=== PATIENT | female | born 1990 | race Caucasian/White ===

== ENCOUNTER → 2017-01-26 | Outpatient (CLI) | payer OTHER ==
--- NOTE | 2017-01-26 17:28 | Diagnostic Imaging Report ---
INDICATION: survey. FINDINGS: Obstetrical ultrasonography reveals salazar intrauterine fetus in cephalic presentation. cardiac activity is present with a rate of 155 beats per minute. Placenta is posterior without evidence of previa. No anomaly is identified; however, the posterior fossa and the head is not well visualized due to positioning. The spine was also incompletely visualized. Small echogenic focus projects over the left ventricle of the heart. This demonstrates no definite shadowing. Cervical length is 4.9 cm. biometry indicates estimated gestational age of 20 weeks and 2 days. IMPRESSION: 1. No anomaly is identified; however, portions of the central nervous system were incompletely evaluated and short-term followup study in approximately 4 weeks would be useful for further evaluation. Followup study could also be used for reassessment of heart to exclude possible mass. 2. Estimated gestational age is 20 weeks and 2 days with sonographic EDC of 05/19/2017. Dictated by: Dictated on workstation # [id number]
== END ==
LOC: RAD 15:45
PROVIDERS: ATTEND Obstetrics & Gynecology
DX: Z33.1 Pregnant state, incidental (principal)
CPT/HCPCS: 76805

== ENCOUNTER → 2017-03-01 | Outpatient (CLI) | payer OTHER ==
--- NOTE | 2017-03-01 16:43 | Diagnostic Imaging Report ---
INDICATION: Followup incomplete anatomical survey, poor visualization of the brain. TECHNIQUE: Multiple real-time grayscale images were obtained over the gravid uterus. COMPARISON: 01/26/2017. FINDINGS: Single live intrauterine is again demonstrated in breech presentation. Normal amniotic fluid index. Grade 1 placenta is located posteriorly with no placenta previa. heart rate measures 156 beats per minute. There is good visualization of the brain and spine on today's exam which appear within normal limits. Echogenic focus is again noted within the left ventricle, indeterminate. IMPRESSION: 1. Good visualization of the brain and spine on today's exam. 2. Persistent echogenic focus within the left ventricle. Dictated by: Dictated on workstation # [id number]
== END ==
LOC: RAD 15:18
PROVIDERS: ATTEND Obstetrics & Gynecology
DX: Z34.82 Encounter for supervision of other normal pregnancy, second trimester (principal)
CPT/HCPCS: 76816

== ENCOUNTER → 2017-04-29 | Outpatient (CLI) | payer OTHER ==
--- NOTE | 2017-04-29 12:06 | Diagnostic Imaging Report ---
INDICATION: Followup echogenic focus of the heart. TECHNIQUE: Multiple real-time grayscale images were obtained over the gravid uterus. COMPARISON: 03/01/2017. FINDINGS: The heart rate is 135 beats per minutes. The placenta is fundal. No placenta previa. position is cephalic. The amniotic fluid index is 16.4 cm. Previously general survey was performed with no abnormality detected. In addition the nasal bone, the nose and upper lip, the upper and lower extremities are scanned with no definite abnormality seen. There are 5 fingers confirmed in both hands. The previously seen echogenic focus in the left ventricle is not well demonstrated on the current exam. IMPRESSION: Live intrauterine . Previously seen echogenic focus in the left ventricle is not well visualized at this time. The extremities, the nasal bone, and the upper lip were examined with no definite abnormality. Dictated by: Dictated on workstation # [id number]
== END ==
LOC: RAD 10:56
PROVIDERS: ATTEND Obstetrics & Gynecology
DX: Z36 Encounter for antenatal screening of mother (principal); Z3A.00 Weeks of gestation of pregnancy not specified
CPT/HCPCS: 76816

== ENCOUNTER 2017-05-31 17:47 | Inpatient (IN) | payer OTHER ==
[~2017-05-31] VITALS: Ht 162.6 cm; Wt 79.5 kg
[2017-05-31] MEDS ORDERED: D5 LR IV SOLUTION 1,000 ML IV ONE (18:07)
[2017-05-31 18:10] VITALS: BP 140/82
[2017-05-31] MEDS: D5 LR IV SOLUTION 1,000 ML IV SCH (18:20)
[2017-05-31] MEDS ORDERED: LACTATED RINGERS 1,000 ML IV ONE (18:24)
[2017-05-31] MEDS ORDERED: LACTATED RINGERS 1,000 ML IV SCH (18:26)
[2017-05-31] MEDS ORDERED: MISOPROSTOL 100 MCG (CYTOTEC) TAB PO NR (18:30)
[2017-05-31] MEDS ORDERED: MINERAL OIL CONCENTRATE 99.9% 15 ML UDC TOP PRN (18:30)
[2017-05-31 18:35] LABS: BASOPHILS % (AUTO) 0 % (0-10); EOSINOPHILS % (AUTO) 0 % (0-10); LYMPHOCYTES # (AUTO) 1.8 X 10^3 (1.0-4.0); LYMPHOCYTES % (AUTO) 17 % (12-44); MEAN CORPUSCULAR HEMOGLOBIN 30 PG (25-34); MEAN CORPUSCULAR HGB CONC 36 G/DL (32-36); MEAN CORPUSCULAR VOLUME 85 FL (80-99); MEAN PLATELET VOLUME 12.1 FL (7.4-10.4); MONOCYTES # (AUTO) 0.9 X 10^3 (0.0-1.0); MONOCYTES % (AUTO) 8 % (0-12); NEUTROPHILS # (AUTO) 8.1 X 10^3 (1.8-7.8); NEUTROPHILS % (AUTO) 75 % (42-75); PLATELET COUNT 130 10^3/uL (130-400); RED BLOOD COUNT 4.26 10^6/uL (4.35-5.85); WHITE BLOOD COUNT 10.8 10^3/uL (4.3-11.0)
[2017-05-31] MEDS ORDERED: PREN1TAB86 PO (18:44)
[2017-05-31 18:54] LABS: ALANINE AMINOTRANSFERASE 24 U/L (0-55); ALBUMIN 3.2 GM/DL (3.2-4.5); ANION GAP 9 MMOL/L (5-14); ASPARTATE AMINO TRANSFERASE 30 U/L (5-34); BILIRUBIN,TOTAL 0.8 MG/DL (0.1-1.0); BLOOD UREA NITROGEN 8 MG/DL (7-18); BUN/CREATININE RATIO 15; CALCIUM 8.9 MG/DL (8.5-10.1); CARBON DIOXIDE 22 MMOL/L (21-32); CHLORIDE 106 MMOL/L (98-107); CREATININE SERUM 0.52 MG/DL (0.60-1.30); GFR ESTIMATED > 60; GLUCOSE 97 MG/DL (70-105); POTASSIUM 3.4 MMOL/L (3.6-5.0); SODIUM 137 MMOL/L (135-145); TOTAL PROTEIN 6.3 GM/DL (6.4-8.2); URIC ACID 3.2 MG/DL (2.6-7.2)
[2017-05-31 20:30] VITALS: BP 141/90
[2017-05-31] MEDS ORDERED: CATHETER FLUSH 10 ML SYR IV SCH (22:00)
[2017-06-01] VITALS (65 sets, daily range): BP systolic 113–202; BP diastolic 62–106
[2017-06-01] MEDS: MISOPROSTOL 100 MCG (CYTOTEC) TAB PO SCH ×2 (00:40→04:50)
[2017-06-01] MEDS: D5 LR IV SOLUTION 1,000 ML IV SCH ×2 (03:37→19:10)
[2017-06-01] MEDS ORDERED: OXYTOCIN/NORMAL SALINE 500 ML IV SCH (09:00)
--- NOTE | 2017-06-01 09:46 | History & Physical-OB ---
OB - Chief Complaint & HPI Date/Time Date of Admission: Date of Admission: May 31, 2017 at 17:47 Time Seen by Provider: 08:00 Chief Complaint/History OB-Reason for Admission/Chief: Induction of Labor Hx : 1 Hx Para: 0 Expected Date of Delivery: Jun 15, 2017 Gestational Age in Weeks: 38 Gestational Age in Days: 0 Indication for induction: medical complication Other reason for admission: Patient has been monitored for gestational thrombocytopenia. Tuesday she underwent repeat platelet evaluation which was found to be 117,000. This a decrease from the 140s on prior platelet evaluation. She also had an acute blood pressure elevation in the setting of no prior blood pressure concerns throughout her . She was 142/90 on Tuesday when I brought the patient back in to discuss platelets she reports that her blood pressure at work was as high as 150s to 160s over 90s to 100, her blood pressure for many office was 144 /94. Due to suspicion for mild preeclampsia and the patient being 38 weeks gestation I discussed with her proceeding with induction of labor. Admission Nurse Assessment Rev: Yes History of Labs O pos Antibody neg RI RPR NR HBsAg NR HIV NR GC neg GBS neg Allergies and Home Medications Allergies Coded Allergies: latex (Verified Allergy, Intermediate, 05/31/17) Home Medications Vit W-Ca,Fe,FA(<1 mg) 1 Each Tablet, 1 EACH PO DAILY, (Reported) OB - History Hx of Present Care: Yes Ultrasounds: Normal mid trimester US Obstetrical Complications: Pre-eclampsia, Other (Gestatonal Thrombocytopenia) Medical Complications: None Patient Past Medical History none Social History/Family History Recent Infectious Disease Expo: No Alcohol Use: Denies Use Recreational Drug Use: No Immunizations Hepatitis B: Yes OB - Admission Exam Physical Exam Date Seen by Provider: Jun 01, 2017 Time Seen by Provider: 07:00 Vitals: Vital Signs 06/01/17 06/01/17 04:50 05:30 Temp 98.1 Pulse 80 Resp 16 B/P (MAP) 132/80 O2 Delivery Room Air HEENT: NCAT Heart: Rhythm Normal Lungs: Clear Abdomen: Gravid Extremities: Normal Reflexes: Normal Cervical Dilatation: 2cm Effacement: 75% Station: -1 Membranes: Intact Heart Rate: 130's Accelerations: Accelerations Present Decelerations: No Decelerations Short Term Variability: Present Longterm Variability: Average (6-25) Contractions on Admission: 6-10 Minutes Apart Intensity: Mild Hobson Scoring Tool (Modified) Dilation (cm): 1-2cm (1) Effacement (%): 51-79% (2) Descent/Station: -1,0 (2) Cervix Consistency: Soft (2) Cervix Position: Anterior (2) Add 1 point for: Pre-eclampsia (1) Subtract 1 point for: Nulliparity (-1) Hobson Score: 9 Labs Laboratory Tests Test 05/31/17 18:25 Range/Units White Blood Count 10.8 4.3-11.0 10^3/uL Red Blood Count 4.26 L 4.35-5.85 10^6/uL Hemoglobin 12.9 11.5-16.0 G/DL Hematocrit 36 35-52 % Mean Corpuscular Volume 85 80-99 FL Mean Corpuscular Hemoglobin 30 25-34 PG Mean Corpuscular Hemoglobin Concent 36 32-36 G/DL Red Cell Distribution Width 13.0 10.0-14.5 % Platelet Count 130 130-400 10^3/uL Mean Platelet Volume 12.1 H 7.4-10.4 FL Neutrophils (%) (Auto) 75 42-75 % Lymphocytes (%) (Auto) 17 12-44 % Monocytes (%) (Auto) 8 0-12 % Eosinophils (%) (Auto) 0 0-10 % Basophils (%) (Auto) 0 0-10 % Neutrophils # (Auto) 8.1 H 1.8-7.8 X 10^3 Lymphocytes # (Auto) 1.8 1.0-4.0 X 10^3 Monocytes # (Auto) 0.9 0.0-1.0 X 10^3 Eosinophils # (Auto) 0.0 0.0-0.3 10^3/uL Basophils # (Auto) 0.0 0.0-0.1 10^3/uL Sodium Level 137 135-145 MMOL/L Potassium Level 3.4 L 3.6-5.0 MMOL/L Chloride Level 106 98-107 MMOL/L Carbon Dioxide Level 22 21-32 MMOL/L Anion Gap 9 5-14 MMOL/L Blood Urea Nitrogen 8 7-18 MG/DL Creatinine 0.52 L 0.60-1.30 MG/DL Estimat Glomerular Filtration Rate > 60 BUN/Creatinine Ratio 15 Glucose Level 97 70-105 MG/DL Uric Acid 3.2 2.6-7.2 MG/DL Calcium Level 8.9 8.5-10.1 MG/DL Total Bilirubin 0.8 0.1-1.0 MG/DL Aspartate Amino Transf (AST/SGOT) 30 5-34 U/L Alanine Aminotransferase (ALT/SGPT) 24 0-55 U/L Alkaline Phosphatase 130 40-136 U/L Total Protein 6.3 L 6.4-8.2 GM/DL Albumin 3.2 3.2-4.5 GM/DL OB - Assessment/Plan/Diagnosis Assessment Assessment: induction of labor Plan Plan: Induction Induction Method: per Misoprostol Protocol Discharge Diagnosis Diagnosis: 27 yo @ 38 weeks gestation Mild PreE with Thrombocytopenia GBS neg AGGIE DICKINSON DO Jun 01, 2017 09:46
[2017-06-01] MEDS ORDERED: SUFENTA 0.6MCG/ML BUPIVA 0.125 100 ML ONE ×2 (15:22→23:30)
[2017-06-01] MEDS ORDERED: BUPIVACAINE 0.25% 30 ML (SENSORCAINE) VIAL ONE (15:22)
[2017-06-01] MEDS ORDERED: ONDANSETRON 4 MG/2 ML (SDV) Z0FRAN ONE (23:15)
[2017-06-01] MEDS ORDERED: ONDANSETRON 4 MG/2 ML (SDV) Z0FRAN IVP PRN (23:30)
[2017-06-01] MEDS ORDERED: LIDOCAINE/EPI 1%-1:200,000 (XYLOCAINE) 30 ML VIAL ONE (23:39)
[2017-06-02] VITALS (16 sets, daily range): BP systolic 110–149; BP diastolic 66–104
[2017-06-02] MEDS: OXYTOCIN/NORMAL SALINE 500 ML IV SCH ×2 (01:00→01:31)
[2017-06-02] MEDS ORDERED: MEASLES,MUMPS,RUBELLA 1 EA INJ SQ ONE (01:15)
[2017-06-02] MEDS ORDERED: APAP 300 MG/CODEINE 30 MG (TYLENOL #3) TAB PO PRN (01:15)
[2017-06-02] MEDS ORDERED: DIBUCAINE (NUPERCAINAL) 1% OINT 30 GM TOP PRN (01:15)
[2017-06-02] MEDS ORDERED: WITCH HAZEL(TUCKS) 40 EA JAR TOP PRN (01:15)
[2017-06-02] MEDS ORDERED: BENZOCAINE/MENTHOL (DERMOPLAST) 56 ML CAN TP PRN (01:15)
[2017-06-02] MEDS ORDERED: TETANUS,DIPTH,PERTUSS P/F (BOOSTRIX) 0.5 ML VIAL IM ONE (01:15)
--- NOTE | 2017-06-02 01:18 | OB Labor & Delivery Record ---
L&D History Date of Service Date of Service: Jun 02, 2017 History Expected Date of Delivery: Jun 15, 2017 Gestational Age in Weeks: 38 Hx : 1 Hx Para: 0 Complications Events: Pre-Eclampsia (gestational thrombocytopenia), Routine care Operative Indications (Cesarea: N/A-Vaginal Delivery Intrapartal Events: None L&D Stage1 Stage One Onset of Labor - Date: Jun 01, 2017 Monitors and Tracing Monitor Mode: External Heart Rate: 130 Station: -2 Chiropractic Assistant Variability: Average (6-10) Short Term Variability: Present Presentation: Vertex Vital Signs VS - Last 72 Hours, by Label 05/31/17 05/31/17 05/31/17 05/31/17 18:10 20:30 21:30 22:30 Temp 97.8 Resp 20 18 18 B/P (MAP) 140/82 141/90 O2 Delivery Room Air Room Air Room Air Room Air 05/31/17 06/01/17 06/01/17 06/01/17 23:30 00:30 00:40 01:30 Temp 98.9 Pulse 84 Resp 16 B/P (MAP) 137/92 O2 Delivery Room Air Room Air Room Air Room Air 06/01/17 06/01/17 06/01/17 06/01/17 02:30 03:30 04:30 04:50 Temp 98.1 Pulse 80 Resp 16 B/P (MAP) 132/80 O2 Delivery Room Air Room Air Room Air Room Air 06/01/17 06/01/17 06/01/17 06/01/17 05:30 08:50 09:05 09:20 Temp 98.4 Pulse 77 73 76 Resp 16 18 16 B/P (MAP) 136/92 147/81 132/85 O2 Delivery Room Air Room Air Room Air Room Air 06/01/17 06/01/17 06/01/17 06/01/17 09:35 09:50 10:05 10:20 Pulse 73 69 65 65 Resp 16 16 16 18 B/P (MAP) 114/64 115/67 134/89 128/84 O2 Delivery Room Air Room Air Room Air Room Air 06/01/17 06/01/17 06/01/17 06/01/17 10:30 10:45 11:00 11:15 Pulse 69 73 79 73 Resp 20 20 20 20 B/P (MAP) 126/83 134/93 113/87 139/95 O2 Delivery Room Air Room Air Room Air Room Air 06/01/17 06/01/17 06/01/17 06/01/17 11:30 11:45 12:00 12:15 Temp 98.6 Pulse 72 78 74 70 Resp 20 20 20 20 B/P (MAP) 134/73 139/88 149/95 141/95 O2 Delivery Room Air Room Air Room Air Room Air 06/01/17 06/01/17 06/01/17 06/01/17 12:30 12:45 13:00 13:15 Pulse 74 76 63 Resp 18 18 18 18 B/P (MAP) 122/73 143/91 114/69 O2 Delivery Room Air Room Air Room Air Room Air 06/01/17 06/01/17 06/01/17 06/01/17 13:30 13:45 14:00 14:15 Pulse 63 65 70 Resp 18 18 18 18 B/P (MAP) 123/70 130/86 134/88 O2 Delivery Room Air Room Air Room Air Room Air 06/01/17 06/01/17 06/01/17 06/01/17 14:30 14:45 15:00 15:15 Pulse 73 76 92 77 Resp 18 18 18 18 B/P (MAP) 134/90 135/76 202/101 131/86 O2 Delivery Room Air Room Air Room Air Room Air 06/01/17 06/01/17 06/01/17 06/01/17 15:30 15:33 15:36 15:38 Pulse 82 75 81 81 Resp 18 18 18 18 B/P (MAP) 137/84 144/96 151/92 142/83 Pulse Ox 100 100 100 O2 Delivery Room Air Room Air Room Air Room Air 06/01/17 06/01/17 06/01/17 06/01/17 15:41 15:45 15:48 15:55 Temp 98.4 Pulse 83 93 76 76 Resp 18 18 18 18 B/P (MAP) 142/82 148/88 147/85 134/78 Pulse Ox 100 100 99 O2 Delivery Room Air Room Air Room Air Room Air 06/01/17 06/01/17 06/01/17 06/01/17 16:00 16:05 16:10 16:15 Pulse 77 83 81 88 Resp 18 18 B/P (MAP) 137/90 133/98 142/88 152/92 Pulse Ox 98 98 98 99 O2 Delivery Room Air Room Air Room Air Room Air 06/01/17 06/01/17 06/01/17 06/01/17 16:30 16:45 17:00 17:15 Pulse 81 85 83 80 Resp 18 18 18 18 B/P (MAP) 142/100 134/78 130/76 147/99 Pulse Ox 99 99 99 99 O2 Delivery Room Air Room Air Room Air Room Air 06/01/17 06/01/17 06/01/17 06/01/17 17:30 17:45 18:00 18:15 Pulse 90 90 92 80 Resp 18 18 18 18 B/P (MAP) 141/99 152/99 146/94 143/98 Pulse Ox 99 99 99 99 O2 Delivery Room Air Room Air Room Air Room Air 06/01/17 06/01/17 06/01/1717 18:30 18:45 19:00 19:15 Temp 98.4 Pulse 78 79 80 80 Resp 18 18 18 18 B/P (MAP) 136/97 141/95 Pulse Ox 99 98 98 98 O2 Delivery Room Air Room Air Room Air Room Air 06/01/17 06/01/17 06/01/17 06/01/17 19:30 19:45 20:00 20:15 Temp 99.0 Pulse 80 83 81 84 Resp 18 18 18 18 B/P (MAP) 146/95 145/90 134/88 Pulse Ox 98 98 98 98 O2 Delivery Room Air Room Air Room Air Room Air 06/01/17 06/01/17 06/01/17 06/01/17 20:30 20:45 21:00 21:15 Pulse 88 80 78 75 Resp 18 18 18 18 B/P (MAP) 137/88 134/83 135/83 Pulse Ox 98 98 98 98 O2 Delivery Room Air Room Air Room Air Room Air 06/01/17 06/01/17 06/01/17 06/01/17 21:30 21:45 22:00 22:15 Pulse 81 71 71 73 Resp 18 18 18 18 B/P (MAP) 124/71 127/70 124/71 125/72 Pulse Ox 98 98 98 98 O2 Delivery Room Air Room Air Room Air Room Air 06/01/17 06/01/17 06/01/17 22:30 22:45 23:00 Temp 98.2 Pulse 74 69 73 Resp 18 18 18 B/P (MAP) 116/70 125/62 123/62 Pulse Ox 98 98 97 O2 Delivery Room Air Room Air Room Air Rupture of Membranes Spontaneous Ruture of Membrane: No Amniotic Membrane Rupture Time: 1803 Amniotic Membrane Fluid Desc.: Clear Vaginal Bleeding Description: Normal Show Induction/Anesthesia Epidural Cath Placement - Time: 1545 Progress/Notes Patient was brought in on the evening of May 31 for Cytotec by mouth overnight. The following morning she was found and made minimal change from her admission examination was started on Pitocin augmentation. An adequate contraction pattern was achieved, throughout the day she mildly progressed however 5 o'clock in the afternoon artificial rupture membranes was performed clear fluid was noted and the patient progressed rapidly after that point. She progressed to complete and +1 station L&D Stage2 Stage Two Stage II Date: Jun 02, 2017 Monitors and Tracing Monitor Mode: External Heart Rate: 130 Monitor Decelerations: Variable Chiropractic Assistant Variability: Minimal (3-5) Short Term Variability: Present Position: Right Occiput Anterior Cord Descript/Complications Cord Vessel Description: 3 Vessels Delivery Type Delivery Method: Spontaneous Vaginal Anterior Shoulder: Right Episiotomy/Perineal Laceration Laceraction(s)/Extensions: Yes Episiotomy Description: Right Mediolateral Degree (describe repair) Right mediolateral episiotomy repaired using 30 and 2-0 Vicryl suture in the usual fashion Condition of Infant Delivery 1 minute Comment: 8 5 minute Comment: 9 Notes Live female infant weight pending Condition of Infant Condition of : Living Exam: No Observed Abnormalities Resuscitation Resuscitation: N/A - Spontaneous Resp L&D Stage3 Stage Three Stage III Date: Jun 02, 2017 Pictocin Pitocin Administration mu/min: 14 Pitocin ml/hr: 14 Pitocin Administration Comment: Wide open 30 milliunits Pitocin given at delivery of placenta Placenta Delivery Placenta Delivery: Spontaneous Delivery Summary Summary blood loss >1000ml: No Vaginal blood loss >500ml: No 400 Attending at delivery: Aggie Dickinson DO Condition of Delivery Examined: Cervix Examined, Uterus Explored Post Hemorrhage: No Condition of Mother Stable Condition of Infant (s) Stable AGGIE DICKINSON DO Jun 02, 2017 1:18 am
[2017-06-02] MEDS: IBUPROFEN 600 MG (MOTRIN) TAB PO SCH ×4 (03:31→20:19)
[2017-06-02] MEDS ORDERED: CATHETER FLUSH 10 ML SYR IV SCH (06:00)
[2017-06-02] MEDS: DOCUSATE SODIUM 100 MG (COLACE) CAP PO SCH ×2 (08:17→20:18)
[2017-06-02] MEDS: PRENATAL VITAMIN 1 EA TAB PO SCH (08:18)
[2017-06-02] MEDS: FERROUS SULF 325 MG (IRON) TAB PO SCH (08:18)
--- NOTE | 2017-06-02 11:36 | Anesthesia-Regional Post-Op ---
Regional Patient Condition Mental Status: Alert, Oriented x3 Circulation: Same as Pre-Op Headache: Absent Sensation: Full Recovery Motor Block: Absent Post Op Complications Complications None Follow Up Care/Instructions Patient Instructions None needed. Anesthesia/Patient Condition Patient is doing well, no complaints, stable vital signs, no apparent adverse anesthesia problems. No complications reported per nursing. YESENIA LYNN CRNA Jun 02, 2017 11:36
[2017-06-03 02:00] VITALS: BP 125/80
[2017-06-03] MEDS: IBUPROFEN 600 MG (MOTRIN) TAB PO SCH ×3 (02:29→16:50)
[2017-06-03 07:38] LABS: BASOPHILS % (AUTO) 0 % (0-10); EOSINOPHILS # (AUTO) 0.1 10^3/uL (0.0-0.3); EOSINOPHILS % (AUTO) 1 % (0-10); LYMPHOCYTES # (AUTO) 1.5 X 10^3 (1.0-4.0); LYMPHOCYTES % (AUTO) 18 % (12-44); MEAN CORPUSCULAR HEMOGLOBIN 30 PG (25-34); MEAN CORPUSCULAR HGB CONC 35 G/DL (32-36); MEAN CORPUSCULAR VOLUME 87 FL (80-99); MEAN PLATELET VOLUME 12.7 FL (7.4-10.4); MONOCYTES # (AUTO) 0.7 X 10^3 (0.0-1.0); MONOCYTES % (AUTO) 8 % (0-12); NEUTROPHILS # (AUTO) 6.4 X 10^3 (1.8-7.8); NEUTROPHILS % (AUTO) 74 % (42-75); PLATELET COUNT 117 10^3/uL (130-400); RED BLOOD COUNT 3.36 10^6/uL (4.35-5.85); RED CELL DISTRIBUTION WIDTH 13.1 % (10.0-14.5); WHITE BLOOD COUNT 8.7 10^3/uL (4.3-11.0)
[2017-06-03] MEDS ORDERED: FERR-74 PO (09:08)
[2017-06-03] MEDS ORDERED: DOCU100C37 PO (09:08)
[2017-06-03] MEDS ORDERED: BENZ56AE2 TP (09:08)
[2017-06-03] MEDS ORDERED: IBUP-1773 PO (09:08)
[2017-06-03] MEDS ORDERED: ACET1TAB43 PO (09:08)
--- NOTE | 2017-06-03 09:09 | Discharge Inst-Women's Service ---
Discharge Inst-Women's Serv Depart Medication/Instructions New, Converted or Re-Newed RX: RX on Chart Consults/Follow Up Additional Follow Up: Yes Orders/Referrals Dr. Dickinson in 6 weeks Activity Activity: Activity as Tolerated Driving Instructions: No Driving for 1 Week NO SMOKING: NO SMOKING Nothing Inside Vagina: No Douching, No [place], No Tampons Diet Discharge Diet: No Restrictions Symptoms to Report to : Bleeding Excessive, Pain Increased, Fever Over 101 Degrees F, Vaginal Bleeding Increase, Questions/Concerns For Any Problems or Questions: Contact Your Physician Skin/Wound Care Bathing Instructions: Shower (x 2 weeks) AGGIE DICKINSON DO Jun 03, 2017 9:09 am
--- NOTE | 2017-06-03 09:11 | Progress Note-Standard ---
Standard Progress Note Progress Notes/Assess & Plan Date Seen by Provider: Jun 03, 2017 Time Seen by Provider: 09:30 Progress/Assessment & Plan Patient doing well PPD 1 NVD. Reports good pain control, lochia min. Ambulating and voiding freely. . Vital Sign - Last 24 Hours 06/02/17 06/02/17 06/02/17 06/03/17 12:15 17:30 20:00 02:00 Temp 98.0 99.0 98.6 97.0 Pulse 78 86 84 83 Resp B/P (MAP) 119/74 131/81 124/78 125/80 Pulse Ox 98 98 96 98 O2 Delivery Room Air Room Air Room Air Room Air Laboratory Tests Test 06/03/17 07:20 Range/Units White Blood Count 8.7 4.3-11.0 10^3/uL Red Blood Count 3.36 L 4.35-5.85 10^6/uL Hemoglobin 10.1 #L 11.5-16.0 G/DL Hematocrit 29 L 35-52 % Mean Corpuscular Volume 87 80-99 FL Mean Corpuscular Hemoglobin 30 25-34 PG Mean Corpuscular Hemoglobin Concent 35 32-36 G/DL Red Cell Distribution Width 13.1 10.0-14.5 % Platelet Count 117 L 130-400 10^3/uL Mean Platelet Volume 12.7 H 7.4-10.4 FL Neutrophils (%) (Auto) 74 42-75 % Lymphocytes (%) (Auto) 18 12-44 % Monocytes (%) (Auto) 8 0-12 % Eosinophils (%) (Auto) 1 0-10 % Basophils (%) (Auto) 0 0-10 % Neutrophils # (Auto) 6.4 1.8-7.8 X 10^3 Lymphocytes # (Auto) 1.5 1.0-4.0 X 10^3 Monocytes # (Auto) 0.7 0.0-1.0 X 10^3 Eosinophils # (Auto) 0.1 0.0-0.3 10^3/uL Basophils # (Auto) 0.0 0.0-0.1 10^3/uL Uterine fundus firm and below umbilicus Diagnosis: PPD 1 NVD P: DC today w infant TEENAAGGIE Amaury ECKERT Jun 03, 2017 9:11 am
[2017-06-03 09:15] VITALS: BP 121/76
[2017-06-03] MEDS: DOCUSATE SODIUM 100 MG (COLACE) CAP PO SCH (09:42)
[2017-06-03] MEDS: PRENATAL VITAMIN 1 EA TAB PO SCH (09:42)
[2017-06-03] MEDS: FERROUS SULF 325 MG (IRON) TAB PO SCH (09:42)
[2017-06-03 12:30] VITALS: BP 124/76
[2017-06-03 16:20] VITALS: BP 125/80
[2017-06-03 17:35] VITALS: BP 125/80
== END 2017-06-03 17:35 | disposition home or self-care (01) | DRG 775 ==
LOC: LDRP 17:47
PROVIDERS: ADMIT Obstetrics & Gynecology; ATTEND Obstetrics & Gynecology
PROC: 3E0P7GC Introduction of Other Therapeutic Substance into Female Reproductive, Via Natural or Artificial Opening (ICD-10-PCS; 2017-05-31)
PROC: 0W8NXZZ Division of Female Perineum, External Approach (ICD-10-PCS; principal; 2017-06-02)
PROC: 10E0XZZ Delivery of Products of Conception, External Approach (ICD-10-PCS; 2017-06-02)
DX: O14.94 Unspecified pre-eclampsia, complicating childbirth (principal); O99.13 Other diseases of the blood and blood-forming organs and certain disorders involving the immune mechanism complicating the puerperium; D69.6 Thrombocytopenia, unspecified; Z3A.38 38 weeks gestation of pregnancy; Z37.0 Single live birth
CPT/HCPCS: 36415; 80053; 84550; 85025; 86850; 86900; 86901; 88307

== ENCOUNTER → 2019-01-04 | Outpatient (CLI) | payer OTHER ==
[~2019-01-04] MED LIST: ACET1TAB43 PO; BENZ56AE2 TP; DOCU100C37 PO; FERR325T18 PO; IBUP-1773 PO; PREN1TAB86 PO
--- NOTE | 2019-01-04 09:06 | Diagnostic Imaging Report ---
INDICATION: Enlarged thyroid gland TECHNIQUE: Grayscale sonographic images of the thyroid gland. CORRELATION STUDY: None FINDINGS: RIGHT LOBE: 5.0 x 1.6 x 1.5 cm. There is normal echotexture about the right lobe. LEFT LOBE: 4.1 x 1.5 x 1.5 cm. There is normal echotexture about the left lobe. Isthmus appears unremarkable. IMPRESSION: Mildly elongated, borderline enlarged thyroid gland. No definitive mass. (Normal gland size: 4-5 x 2 x 2 cm) Dictated by: Dictated on workstation # [id number]
== END ==
LOC: RAD 07:47
PROVIDERS: ATTEND Obstetrics & Gynecology
DX: E04.9 Nontoxic goiter, unspecified (principal)
CPT/HCPCS: 76536

== ENCOUNTER → 2019-03-02 | Outpatient (CLI) | payer OTHER ==
--- NOTE | 2019-03-02 09:04 | Diagnostic Imaging Report ---
Indication: Screening for cardiovascular disease The proximal abdominal aorta measures 18 x 17 mm. The mid abdominal aorta measures 13 x 15 mm. Distal abdominal aorta measures 12 x 13 mm. Right iliac measures 8 x 13 mm. Left iliac measures 8 x 10 mm. Impression: There is no sonographic evidence for abdominal aortic aneurysm. Dictated by: Dictated on workstation # [id number]
== END ==
LOC: RAD 07:35
PROVIDERS: ATTEND Obstetrics & Gynecology
DX: Z13.6 Encounter for screening for cardiovascular disorders (principal)
CPT/HCPCS: 76775

== ENCOUNTER → 2020-02-21 | Outpatient (CLI) | payer OTHER ==
--- NOTE | 2020-02-21 15:58 | Diagnostic Imaging Report ---
INDICATION: survey. TECHNIQUE: Multiple real-time grayscale images were obtained over the gravid uterus. COMPARISON: There are no prior studies available for comparison. FINDINGS: There is a single live fetus in cephalic presentation. heart motion was noted and a rate of 136 BPM was recorded. There were no abnormalities identified. However, the spine was not optimally visualized due to lie. There is no definite abnormality of the visualized spine. Even so, a short-term (4-6 week) follow-up exam would be recommended for further study. The growth parameters are fairly uniform. The placenta is posterior and there is no previa. The amniotic fluid volume is within normal limits. The cervix was identified and measures 3.7 cm in length. Biometrical measurements are as follows: Biparietal 4.52 cm, age 19 weeks 5 days. Head circumference 16.82 cm, age 19 weeks 4 days. Abdominal circumference 13.99 cm, age 19 weeks 3 days. Femur length 2.72 cm, age 18 weeks 3 days. Sonographic estimate age: 19 weeks 2 days. Sonographic estimated date of delivery: 07/15/20. Estimated Weight: 266 gm (+/- 39 gm). LMP percentile: 69%. heart rate: 136 beats per minute. number: 1 of 1. IMPRESSION: 1. There is a single live fetus of approximately 19 weeks 2 days gestation +/- 1.5 weeks. The EDC is 07/15/2020. 2. There were no abnormalities identified but the spine was not optimally visualized. Recommendations, as above. 3. The growth parameters are fairly uniform. Dictated by: Dictated on workstation # [id number]
== END ==
LOC: RAD 11:47
PROVIDERS: ATTEND Obstetrics & Gynecology
DX: Z36.9 Encounter for antenatal screening, unspecified (principal); Z3A.19 19 weeks gestation of pregnancy
CPT/HCPCS: 76805

== ENCOUNTER → 2020-06-30 | Outpatient (CLI) | payer OTHER ==
[~2020-06-30] MED LIST changes: +ACET325C7 PO; +ACHD5005 PO; +BENZ78AE5 TP; +DCS100C PO; +DIBU30OI TOP; +IBUP-844 PO
[2020-06-30 11:12] LABS: URINE CREATININE FOR RATIO 14 MG/DL (30-125); URINE PROTEIN FOR RATIO ONLY < 6 MG/DL (6-12)
== END ==
LOC: LABNPT 11:02
PROVIDERS: ATTEND Obstetrics & Gynecology
DX: O16.9 Unspecified maternal hypertension, unspecified trimester (principal); Z3A.00 Weeks of gestation of pregnancy not specified
CPT/HCPCS: 82570; 84156

== ENCOUNTER → 2020-07-08 | Outpatient (CLI) | payer OTHER ==
[~2020-07-08] MED LIST changes: -ACET325C7 PO; -ACHD5005 PO; -BENZ78AE5 TP; -DCS100C PO; -DIBU30OI TOP; -IBUP-844 PO
[2020-07-08 17:20] LABS: URINE CREATININE FOR RATIO 11 MG/DL (30-125)
[2020-07-08 17:21] LABS: URINE PROTEIN FOR RATIO ONLY < 6 MG/DL (6-12)
== END ==
LOC: LABNPT 16:56
PROVIDERS: ATTEND Obstetrics & Gynecology
DX: O13.3 Gestational [pregnancy-induced] hypertension without significant proteinuria, third trimester (principal)
CPT/HCPCS: 82570; 84156

== ENCOUNTER 2020-07-13 19:00 | Inpatient (IN) | payer OTHER ==
[~2020-07-13] VITALS: Ht 160 cm; Wt 84.3 kg
--- NOTE | 2020-07-13 19:00 | NUR ---
PAUL RUIZ presented to unit via from ED, accompanied by S/O, with c/o [id number] INDUCTION. PAUL RUIZ weighed, gowned, voided, and to bed. EFHM and TOCO applied, VS taken. PAUL RUIZ oriented to bed controls, call light, TV, heat, and A/C controls.
[2020-07-13 19:15] VITALS: BP 148/92
--- NOTE | 2020-07-13 19:20 | NUR ---
Dr. James notified of patient arrival for induction. Vitals reported. Orders received.
[2020-07-13] MEDS ORDERED: D5 LR IV SOLUTION 1,000 ML IV ONE (19:23)
[2020-07-13] MEDS ORDERED: TERBUTALINE INJ 1 MG/ML (BRETHINE) AMP SC PRN (19:30)
[2020-07-13] MEDS ORDERED: MISOPROSTOL 100 MCG (CYTOTEC) TAB PO ONE (19:30)
[2020-07-13] MEDS: D5 LR IV SOLUTION 1,000 ML IV SCH (19:45)
[2020-07-13 19:56] LABS: BILIRUBIN,URINE NEGATIVE (NEGATIVE); CLARITY,URINE CLEAR; COLOR,URINE YELLOW; GLUCOSE, URINE (UA) NEGATIVE (NEGATIVE); KETONES,URINE NEGATIVE (NEGATIVE); LEUKOCYTE ESTERASE ,URINE 2+ (NEGATIVE); NITRITE,URINE NEGATIVE (NEGATIVE); PROTEIN,URINE NEGATIVE (NEGATIVE)
[2020-07-13 19:59] LABS: HEMOGLOBIN 12.3 g/dL (11.5-16.0); LYMPHOCYTES # (AUTO) 2.1 10^3/uL (1.0-4.0)
[2020-07-13] MEDS ORDERED: MISOPROSTOL 100 MCG (CYTOTEC) TAB ONE (19:59)
[2020-07-13 20:01] LABS: BASOPHILS % (AUTO) 0 % (0-10); EOSINOPHILS # (AUTO) 0.1 10^3/uL (0.0-0.3); EOSINOPHILS % (AUTO) 1 % (0-10); HEMATOCRIT 37 % (35-52); LYMPHOCYTES % (AUTO) 23 % (12-44); MEAN CORPUSCULAR HEMOGLOBIN 28 pg (25-34); MEAN CORPUSCULAR HGB CONC 34 g/dL (32-36); MEAN CORPUSCULAR VOLUME 85 fL (80-99); MEAN PLATELET VOLUME 13.4 fL (9.0-12.2); MONOCYTES # (AUTO) 0.7 10^3/uL (0.0-1.0); MONOCYTES % (AUTO) 8 % (0-12); NEUTROPHILS # (AUTO) 6.2 10^3/uL (1.8-7.8); NEUTROPHILS % (AUTO) 68 % (42-75); PLATELET COUNT 130 10^3/uL (130-400); WHITE BLOOD COUNT 9.1 10^3/uL (4.3-11.0)
[2020-07-13 20:02] LABS: BACTERIA,URINE TRACE /HPF
[2020-07-13 20:10] VITALS: BP_SYST 142; BP_SYST 148; BP_DIAS 91; BP_DIAS 92
[2020-07-13 20:20] LABS: ALANINE AMINOTRANSFERASE 15 U/L (0-55); ALBUMIN 3.2 GM/DL (3.2-4.5); ALKALINE PHOSPHATASE 126 U/L (40-136); BILIRUBIN,TOTAL 0.5 MG/DL (0.1-1.0); CALCIUM 9.1 MG/DL (8.5-10.1); CARBON DIOXIDE 18 MMOL/L (21-32); GLUCOSE 105 MG/DL (70-105); TOTAL PROTEIN 6.2 GM/DL (6.4-8.2); URIC ACID 4.5 MG/DL (2.6-7.2)
[2020-07-13 20:22] LABS: URINE PROTEIN FOR RATIO ONLY < 6 MG/DL (6-12)
[2020-07-13] MEDS ORDERED: ACET325C7 PO (20:37)
[2020-07-13 20:42] LABS: CHLORIDE 107 MMOL/L (98-107); POTASSIUM 3.6 MMOL/L (3.6-5.0); SODIUM 138 MMOL/L (135-145)
[2020-07-13 20:47] LABS: BUN/CREATININE RATIO 12; CREATININE SERUM 0.68 MG/DL (0.60-1.30); GFR ESTIMATED > 60
[2020-07-13 20:47] LABS: URINE CREATININE FOR RATIO 19 MG/DL (30-125)
[2020-07-13 21:10] VITALS: BP 115/56
[2020-07-13 22:10] VITALS: BP 127/65
[2020-07-13 23:10] VITALS: BP 133/73
[2020-07-13] MEDS ORDERED: MISOPROSTOL 100 MCG (CYTOTEC) TAB PO SCH (23:30)
[2020-07-14] VITALS (44 sets, daily range): BP systolic 119–168; BP diastolic 63–100
[2020-07-14] MEDS: D5 LR IV SOLUTION 1,000 ML IV SCH ×3 (03:12→19:47)
--- NOTE | 2020-07-14 07:50 | NUR ---
dr carrera on unit.
--- NOTE | 2020-07-14 08:55 | NUR ---
dr carrera at bedside observing FHR/contraction pattern patient response. no new orders at this time.
--- NOTE | 2020-07-14 10:00 | History & Physical-OB ---
OB - Chief Complaint & HPI Date/Time Date of Admission: Date of Admission: Jul 13, 2020 at 7:06 pm Date seen by a Provider: Jul 14, 2020 Time Seen by a Provider: 08:15 Chief Complaint/History OB-Reason for Admission/Chief: Induction of Labor Hx : 3 Hx Para: 1 Expected Date of Delivery: Jul 20, 2020 Gestational Age in Weeks: 39 Gestational Age in Days: 0 Indication for induction: medical complication Other reason for admission: Patient admitted last night for induction of labor secondary to GHTN Admission Nurse Assessment Rev: Yes History of Labs O pos Antibody neg RI RPR NR HBsAg NR HIV NR GC neg GBS neg Allergies and Home Medications Allergies Coded Allergies: latex (Verified Allergy, Severe, Shortness of Breath, 07/13/20) Penicillins (Verified Allergy, Unknown, 07/13/20) Home Medications Acetaminophen 325 Mg Capsule, 500 MG PO PRN, (Reported) Vit W-Ca,Fe,FA(<1 mg) 1 Each Tablet, 1 EACH PO DAILY, (Reported) Patient Home Medication List Home Medication List Reviewed: Yes OB - History Hx of Present Care: Yes Ultrasounds: Normal mid trimester US Obstetrical Complications: Gestational Hypertension Medical Complications: None Delivery History Adverse Rxn to Tranfusion: No Patient Past Medical History none Social History/Family History HIV/AIDS: No Recent Infectious Disease Expo: No Sexually Transmitted Disease: No Alcohol Use: Denies Use Recreational Drug Use: No Immunizations Hepatitis B: Yes Date of Influenza Vaccine: Jul 10, 2020 OB - Admission Exam Physical Exam Vitals: Vital Signs 07/14/20 07/14/20 04:10 06:10 Temp 36.4 Pulse 78 Resp 16 B/P (MAP) 168/89 (115) O2 Delivery Room Air HEENT: NCAT Heart: Rhythm Normal Lungs: Clear Abdomen: Gravid Extremities: Normal Reflexes: Normal Cervical Dilatation: 4cm Effacement: 75% Station: -1 Membranes: Intact Heart Rate: 130's Accelerations: Accelerations Present Decelerations: No Decelerations Short Term Variability: Present Cutting Tool Sharpener Variability: Average (6-25) Contractions on Admission: 6-10 Minutes Apart Intensity: Mild Hobson Scoring Tool (Modified) Dilation (cm): 3-4cm (2) Effacement (%): 51-79% (2) Descent/Station: -1,0 (2) Cervix Consistency: Soft (2) Cervix Position: Anterior (2) Add 1 point for: Each previous vaginal delivery (1) Hobson Score: 11 Labs Laboratory Tests Test 07/13/20 19:20 07/13/20 19:40 Range/Units Urine Color YELLOW Urine Clarity CLEAR Urine pH 7.0 5-9 Urine Specific Central <=1.005 1.016-1.022 Urine Protein < 6 L 6-12 MG/DL Urine Glucose (UA) NEGATIVE NEGATIVE Urine Ketones NEGATIVE NEGATIVE Urine Nitrite NEGATIVE NEGATIVE Urine Bilirubin NEGATIVE NEGATIVE Urine Urobilinogen 0.2 < = 1.0 MG/DL Urine Leukocyte Esterase 2+ H NEGATIVE Urine RBC (Auto) NEGATIVE NEGATIVE Urine RBC NONE /HPF Urine WBC 2-5 /HPF Urine Squamous Epithelial Cells 5-10 /HPF Urine Crystals NONE /LPF Urine Bacteria TRACE /HPF Urine Casts NONE /LPF Urine Mucus NEGATIVE /LPF Urine Culture Indicated NO Urine Creatinine 19 L 30-125 MG/DL Urine Protein/Creatinine Ratio White Blood Count 9.1 4.3-11.0 10^3/uL Red Blood Count 4.33 3.80-5.11 10^6/uL Hemoglobin 12.3 11.5-16.0 g/dL Hematocrit 37 35-52 % Mean Corpuscular Volume 85 80-99 fL Mean Corpuscular Hemoglobin 28 25-34 pg Mean Corpuscular Hemoglobin Concent 34 32-36 g/dL Red Cell Distribution Width 13.2 10.0-14.5 % Platelet Count 130 130-400 10^3/uL Mean Platelet Volume 13.4 H 9.0-12.2 fL Immature Granulocyte % (Auto) 1 % Neutrophils (%) (Auto) 68 42-75 % Lymphocytes (%) (Auto) 23 12-44 % Monocytes (%) (Auto) 8 0-12 % Eosinophils (%) (Auto) 1 0-10 % Basophils (%) (Auto) 0 0-10 % Neutrophils # (Auto) 6.2 1.8-7.8 10^3/uL Lymphocytes # (Auto) 2.1 1.0-4.0 10^3/uL Monocytes # (Auto) 0.7 0.0-1.0 10^3/uL Eosinophils # (Auto) 0.1 0.0-0.3 10^3/uL Basophils # (Auto) 0.0 0.0-0.1 10^3/uL Immature Granulocyte # (Auto) 0.1 0.0-0.1 10^3/uL Sodium Level 138 135-145 MMOL/L Potassium Level 3.6 3.6-5.0 MMOL/L Chloride Level 107 98-107 MMOL/L Carbon Dioxide Level 18 L 21-32 MMOL/L Anion Gap 13 5-14 MMOL/L Blood Urea Nitrogen 8 7-18 MG/DL Creatinine 0.68 0.60-1.30 MG/DL Estimat Glomerular Filtration Rate > 60 BUN/Creatinine Ratio 12 Glucose Level 105 70-105 MG/DL Uric Acid 4.5 2.6-7.2 MG/DL Calcium Level 9.1 8.5-10.1 MG/DL Corrected Calcium 9.7 8.5-10.1 MG/DL Total Bilirubin 0.5 0.1-1.0 MG/DL Aspartate Amino Transf (AST/SGOT) 21 5-34 U/L Alanine Aminotransferase (ALT/SGPT) 15 0-55 U/L Alkaline Phosphatase 126 40-136 U/L Total Protein 6.2 L 6.4-8.2 GM/DL Albumin 3.2 3.2-4.5 GM/DL OB - Assessment/Plan/Diagnosis Assessment Assessment: induction of labor Admission Dx 30 yo @ 39.1 weeks Gestational HTN Induction of labor at term GBS neg Admission Status: Inpatient Order (span 2 midnights) Reason for Inpatient Admission: 30 yo @ 39.1 weeks Gestational HTN Induction of labor at term GBS neg Plan Plan: Induction Induction Method: per Misoprostol Protocol AGGIE DICKINSON DO Jul 14, 2020 10:00 am
[2020-07-14] MEDS ORDERED: LIDOCAINE/EPI 2% 1:200,00 (XYLOCAINE) 10 ML VIAL ONE (11:14)
[2020-07-14] MEDS ORDERED: OXYTOCIN PRE-MIX DRIP 500 ML IV ONE (11:14)
[2020-07-14] MEDS ORDERED: fentaNYL 2 mcg/ml BUPIVA 0.125 100 ML ONE (11:14)
[2020-07-14] MEDS ORDERED: LIDOCAINE PF 2% 5 ML (XYLOCAINE) VIAL ONE (11:40)
[2020-07-14] MEDS ORDERED: BUPIVACAINE 0.25% 30 ML (SENSORCAINE) VIAL ONE (11:40)
[2020-07-14] MEDS ORDERED: fentaNYL INJECTION 100 MCG/2 ML AMP ONE (11:41)
[2020-07-14] MEDS ORDERED: LACTATED RINGERS 1,000 ML IV SCH (12:07)
[2020-07-14] MEDS ORDERED: diphenhydrAMINE 50 MG/ML INJ (BENADRYL) IV PRN (12:15)
[2020-07-14] MEDS ORDERED: EPIDURAL (fentaNYL 2 MCG/ML BUPIVA 0.125%)100 ML BAG EPI PRN (12:15)
[2020-07-14] MEDS ORDERED: NALOXONE 0.4 MG/ML 1 ML (NARCAN) VIAL IV PRN (12:15)
[2020-07-14] MEDS ORDERED: ONDANSETRON 4 MG/2 ML (SDV) Z0FRAN IV PRN (12:15)
[2020-07-14] MEDS ORDERED: OXYTOCIN PRE-MIX DRIP 500 ML IV SCH ×2 (13:00→15:53)
--- NOTE | 2020-07-14 14:58 | NUR ---
dr carrera to ob unit observing fhr/contraction pattern.
--- NOTE | 2020-07-14 15:58 | OB Labor & Delivery Record ---
L&D History Date of Service Date of Service: Jul 14, 2020 History Expected Date of Delivery: Jul 20, 2020 Gestational Age in Weeks: 39 Hx : 3 Hx Para: 1 Complications Events: Induced HTN, Routine care Operative Indications (Cesarea: N/A-Vaginal Delivery Intrapartal Events: None L&D Stage1 Stage One Onset of Labor - Date: Jul 14, 2020 Monitors and Tracing Monitor Mode: External Heart Rate: 125 Monitor Accelerations: Uniform Monitor Decelerations: None Station: 0 Fpc Variability: Average (6-10) Short Term Variability: Present Vital Signs VS - Last 72 Hours, by Label 07/13/20 07/13/20 07/13/20 07/13/20 19:15 20:10 20:10 21:10 Temp 36.8 36.8 Pulse 77 82 77 77 Resp 18 18 18 16 B/P (MAP) 148/92 (110) 142/91 (108) 115/56 (75) Pulse Ox 99 99 O2 Delivery Room Air Room Air Room Air Room Air 07/13/20 07/13/20 07/14/20 07/14/20 22:10 23:10 00:10 01:10 Temp 36.6 Pulse 78 86 84 73 Resp 16 16 16 16 B/P (MAP) 127/65 (85) 133/73 (93) 135/90 (105) 120/66 (84) O2 Delivery Room Air Room Air Room Air Room Air 07/14/20 07/14/20 07/14/20 07/14/20 02:10 03:10 04:10 05:10 Temp 36.4 Pulse 71 76 78 75 Resp 16 16 16 16 B/P (MAP) 135/78 (97) 136/89 (105) 142/83 (102) 119/63 (81) O2 Delivery Room Air Room Air Room Air Room Air 07/14/20 07/14/20 07/14/20 07/14/20 06:10 08:10 09:10 09:35 Temp 36.4 Pulse 78 77 76 74 Resp 16 16 16 16 B/P (MAP) 168/89 (115) 140/90 (107) 137/86 (103) 140/82 (101) O2 Delivery Room Air Room Air Room Air Room Air 07/14/20 07/14/20 07/14/2007/14/20 09:50 10:05 10:35 10:50 Pulse 77 77 76 82 Resp 16 16 16 16 B/P (MAP) 144/94 (111) 142/95 (111) 159/90 (113) 141/86 (104) O2 Delivery Room Air Room Air Room Air Room Air 07/14/20 07/14/20 07/14/20 07/14/20 11:05 11:20 11:35 11:50 Pulse 75 76 80 85 Resp 16 16 20 20 B/P (MAP) 143/91 (108) 149/99 (116) 152/88 (109) 156/80 (105) Pulse Ox 100 O2 Delivery Room Air Room Air Room Air Room Air 07/14/20 07/14/20 07/14/20 07/14/20 11:55 12:00 12:05 12:10 Temp 36.5 Pulse 94 75 79 89 Resp 20 20 20 20 B/P (MAP) 147/77 (100) 155/83 (107) 143/82 (102) 134/87 (103) Pulse Ox 100 100 100 100 O2 Delivery Room Air Room Air Room Air Room Air 07/14/20 07/14/20 07/14/20 07/14/20 12:15 12:20 12:25 12:40 Pulse 83 101 90 80 Resp 20 20 20 20 B/P (MAP) 139/91 (107) 146/80 (102) 135/82 (99) 137/88 (104) Pulse Ox 100 99 99 99 O2 Delivery Room Air Room Air Room Air Room Air 07/14/20 07/14/20 07/14/20 07/14/20 12:50 13:15 13:30 13:44 Pulse 105 86 88 87 Resp 20 20 18 18 B/P (MAP) 155/86 (109) 144/94 (111) 144/88 (106) 141/88 (105) Pulse Ox 99 100 99 100 O2 Delivery Room Air Room Air Room Air Room Air 07/14/20 07/14/20 07/14/20 07/14/20 14:00 14:15 14:30 14:45 Pulse 104 76 75 78 Resp 18 18 18 18 B/P (MAP) 145/92 (109) 120/78 (92) 129/77 (94) 129/74 (92) Pulse Ox 99 97 99 98 O2 Delivery Room Air Room Air Room Air Room Air Rupture of Membranes Spontaneous Ruture of Membrane: No Amniotic Membrane Rupture Time: 0756 Amniotic Membrane Fluid Desc.: Clear Vaginal Bleeding Description: Normal Show Induction/Anesthesia Epidural Cath Placement - Time: 1158 Progress/Notes Patient admitted last night induced with cytotec 100 mcg po x 1 dose followed by 50 mcg 4 hrs later. AROM performed this AM and she progressed to complete and +2 without further augmentation. Epidural placed when she was about 6 cm. L&D Stage2 Stage Two Stage II Date: Jul 14, 2020 Monitors and Tracing Monitor Mode: External Heart Rate: 125 Monitor Accelerations: Uniform Monitor Decelerations: Variable Fpc Variability: Average (6-10) Short Term Variability: Present Position: Right Occiput Anterior Presentation: Vertex Cord Descript/Complications Cord Vessel Description: 3 Vessels Complications nuchal cord x 2 Delivery Type Delivery Method: Spontaneous Vaginal Anterior Shoulder: Left Episiotomy/Perineal Laceration Laceraction(s)/Extensions: Yes Episiotomy Description: Perineal Extension/lac, 2nd degree Degree (describe repair) midline perineal laceration repaired using 3-0 rapide in usual fashion Condition of Infant Delivery 1 minute Comment: 8 5 minute Comment: 9 Notes Live male weight 9lbs. Condition of Condition of : Living Exam: No Observed Abnormalities Resuscitation Resuscitation: N/A - Spontaneous Resp L&D Stage3 Stage Three Stage III Date: Jul 14, 2020 Pictocin Pitocin Administration Comment: 30 mu wide open at delivery of placenta Placenta Delivery Placenta Delivery: Spontaneous Delivery Summary Summary Estimated blood loss (mL): 450 Attending at delivery: Aggie Dickinson DO Condition of Delivery Examined: Cervix Examined, Uterus Explored Post Hemorrhage: No Condition of Mother stable Condition of Infant (s) stable AGGIE DICKINSON DO Jul 14, 2020 3:58 pm
[2020-07-14] MEDS ORDERED: MEASLES,MUMPS,RUBELLA 1 EA INJ SQ ONE (16:00)
[2020-07-14] MEDS ORDERED: HYDROcodone/APAP 5 MG/325 MG (LORTAB) TAB PO PRN (16:00)
[2020-07-14] MEDS ORDERED: WITCH HAZEL(TUCKS) 40 EA JAR TOP PRN (16:00)
[2020-07-14] MEDS ORDERED: TETANUS,DIPTH,PERTUSS P/F (BOOSTRIX) 0.5 ML VIAL IM ONE (16:00)
[2020-07-14] MEDS ORDERED: BENZOCAINE/MENTHOL (DERMOPLAST) 60 ML CAN TP PRN (16:00)
[2020-07-14] MEDS ORDERED: DIBUCAINE (NUPERCAINAL) 1% OINT 30 GM TOP PRN (16:00)
[2020-07-14] MEDS ORDERED: IBUP-844 PO (16:01)
[2020-07-14] MEDS ORDERED: DIBU30OI TOP (16:01)
[2020-07-14] MEDS ORDERED: DCS100C PO (16:01)
[2020-07-14] MEDS ORDERED: FERR325T18 PO (16:01)
[2020-07-14] MEDS ORDERED: ACHD5005 PO (16:01)
[2020-07-14] MEDS ORDERED: BENZ78AE5 TP (16:01)
--- NOTE | 2020-07-14 16:02 | Discharge Inst-Women's Service ---
Discharge Inst-Women's Serv Depart Medication/Instructions New, Converted or Re-Newed RX: RX on Chart Final Diagnosis PPD 1 NVD Problems Reviewed?: Yes Consults/Follow Up Additional Follow Up: Yes Orders/Referrals Dr. Dickinson in 6 weeks Activity Activity: Activity as Tolerated Driving Instructions: No Driving for 1 Week NO SMOKING: NO SMOKING Nothing Inside Vagina: No Douching, No [place], No Tampons Diet Discharge Diet: No Restrictions Symptoms to Report to : Bleeding Excessive, Pain Increased, Fever Over 101 Degrees F, Vaginal Bleeding Increase, Questions/Concerns For Any Problems or Questions: Contact Your Physician AGGIE DICKINSON DO Jul 14, 2020 4:02 pm
[2020-07-14] MEDS: IBUPROFEN 600 MG (MOTRIN) TAB PO SCH (17:41)
[2020-07-14] MEDS: DOCUSATE SODIUM 100 MG (COLACE) CAP PO SCH (20:12)
[2020-07-14] MEDS ORDERED: CATHETER FLUSH 10 ML SYR IV SCH (22:00)
[2020-07-15] MEDS: IBUPROFEN 600 MG (MOTRIN) TAB PO SCH ×5 (00:37→23:15)
[2020-07-15 00:40] VITALS: BP 131/74
[2020-07-15 04:15] VITALS: BP 129/81
[2020-07-15 05:43] LABS: BASOPHILS % (AUTO) 0 % (0-10); EOSINOPHILS % (AUTO) 0 % (0-10); HEMATOCRIT 29 % (35-52); HEMOGLOBIN 9.5 g/dL (11.5-16.0); LYMPHOCYTES # (AUTO) 1.9 10^3/uL (1.0-4.0); LYMPHOCYTES % (AUTO) 20 % (12-44); MEAN CORPUSCULAR HEMOGLOBIN 29 pg (25-34); MEAN CORPUSCULAR HGB CONC 33 g/dL (32-36); MEAN CORPUSCULAR VOLUME 86 fL (80-99); MONOCYTES # (AUTO) 0.5 10^3/uL (0.0-1.0); MONOCYTES % (AUTO) 6 % (0-12); NEUTROPHILS # (AUTO) 6.8 10^3/uL (1.8-7.8); NEUTROPHILS % (AUTO) 73 % (42-75); PLATELET COUNT 100 10^3/uL (130-400); WHITE BLOOD COUNT 9.4 10^3/uL (4.3-11.0)
--- NOTE | 2020-07-15 08:00 | NUR ---
UP TO SHOWER.
--- NOTE | 2020-07-15 08:20 | Anesthesia-Regional Post-Op ---
Regional Patient Condition Mental Status: Alert, Oriented x3 Circulation: Same as Pre-Op Headache: Absent Sensation: Full Recovery Motor Block: Absent Post Op Complications Complications None Follow Up Care/Instructions Patient Instructions None needed. Anesthesia/Patient Condition Patient is doing well, no complaints, stable vital signs, no apparent adverse anesthesia problems. No complications reported per nursing. YESENIA LYNN CRNA Jul 15, 2020 08:20
--- NOTE | 2020-07-15 08:35 | Postpartum Progress Note ---
Note Note Day # 1 Subjective: Patient is without complaints. Ambulating, voiding. Tolerating a regular diet without nausea or vomiting. Normal lochia. Pain is well controlled with oral pain medications. Objective: Physical Exam: General - Alert and oriented, no apparent distress Abdomen - Soft, appropriately tender to palpation, non-distended, fundus firm at umbilicus Extremities - no edema, negative Amira's bilaterally Assessment: PPD 1 NVD Plan: Routine care. Encourage breast feeding. Encourage ambulation. Ferrous sulfate supplementation. Plan for discharge today Vitals - Labs Vital Signs - I&O Vital Signs Date Time Temp Pulse Resp B/P (MAP) Pulse Ox O2 Delivery O2 Flow Rate FiO2 07/15/20 04:15 36.6 81 18 129/81 (97) 98 Room Air 07/15/20 00:40 36.7 97 18 131/74 (93) 97 Room Air 07/14/20 20:12 36.1 105 20 130/87 (101) 98 Room Air 07/14/20 17:15 103 20 144/86 (105) Room Air 07/14/20 17:00 107 20 147/84 (105) Room Air 07/14/20 16:45 110 20 144/88 (106) Room Air 07/14/20 16:30 37.1 114 20 145/94 (111) Room Air 07/14/20 16:15 37.0 115 18 137/94 (108) 98 Room Air 07/14/20 16:00 37.2 120 18 148/85 (106) 98 Room Air 07/14/20 15:45 37.4 125 22 152/100 (117) 99 Room Air 07/14/20 15:15 37.5 88 18 150/95 (113) 100 Room Air 07/14/20 15:00 75 18 124/75 (91) 100 Room Air 07/14/20 14:45 78 18 129/74 (92) 98 Room Air 07/14/20 14:30 75 18 129/77 (94) 99 Room Air 07/14/20 14:15 76 18 120/78 (92) 97 Room Air 07/14/20 14:00 104 18 145/92 (109) 99 Room Air 07/14/20 13:44 87 18 141/88 (105) 100 Room Air 07/14/20 13:30 88 18 144/88 (106) 99 Room Air 07/14/20 13:15 86 20 144/94 (111) 100 Room Air 07/14/20 12:50 105 20 155/86 (109) 99 Room Air 07/14/20 12:40 80 20 137/88 (104) 99 Room Air 07/14/20 12:25 90 20 135/82 (99) 99 Room Air 07/14/20 12:20 101 20 146/80 (102) 99 Room Air 07/14/20 12:15 83 20 139/91 (107) 100 Room Air 07/14/20 12:10 89 20 134/87 (103) 100 Room Air 07/14/20 12:05 79 20 143/82 (102) 100 Room Air 07/14/20 12:00 75 20 155/83 (107) 100 Room Air 07/14/20 11:55 36.5 94 20 147/77 (100) 100 Room Air 07/14/20 11:50 85 20 156/80 (105) 100 Room Air 07/14/20 11:35 80 20 152/88 (109) Room Air 07/14/20 11:20 76 16 149/99 (116) Room Air 07/14/20 11:05 75 16 143/91 (108) Room Air 07/14/20 10:50 82 16 141/86 (104) Room Air 07/14/20 10:35 76 16 159/90 (113) Room Air 07/14/20 10:05 77 16 142/95 (111) Room Air 07/14/20 09:50 77 16 144/94 (111) Room Air 07/14/20 09:35 36.4 74 16 140/82 (101) Room Air 07/14/20 09:10 76 16 137/86 (103) Room Air Labs Laboratory Tests 07/15/20 05:24: White Blood Count 9.4, Red Blood Count 3.32L, Hemoglobin 9.5#L, Hematocrit 29L, Mean Corpuscular Volume 86, Mean Corpuscular Hemoglobin 29, Mean Corpuscular Hemoglobin Concent 33, Red Cell Distribution Width 13.3, Platelet Count 100L, Mean Platelet Volume 13.0H, Immature Granulocyte % (Auto) 1, Neutrophils (%) (Auto) 73, Lymphocytes (%) (Auto) 20, Monocytes (%) (Auto) 6, Eosinophils (%) (Auto) 0, Basophils (%) (Auto) 0, Neutrophils # (Auto) 6.8, Lymphocytes # (Auto) 1.9, Monocytes # (Auto) 0.5, Eosinophils # (Auto) 0.0, Basophils # (Auto) 0.0, Immature Granulocyte # (Auto) 0.1 AGGIE DICKINSON DO Jul 15, 2020 8:35 am
[2020-07-15 08:45] VITALS: BP 135/69
--- NOTE | 2020-07-15 08:45 | NUR ---
A.M. ASSESSMENT COMPLETED. VSS. ICE PACK GIVEN. LANOLIN GIVEN R/T SORE NIPPLES. SPOUSE AT BEDSIDE.
[2020-07-15] MEDS: DOCUSATE SODIUM 100 MG (COLACE) CAP PO SCH ×2 (08:48→20:17)
[2020-07-15] MEDS: PRENATAL VITAMIN 1 EA TAB PO SCH (08:48)
[2020-07-15] MEDS: FERROUS SULF 325 MG (IRON) TAB PO SCH (08:48)
[2020-07-15] MEDS ORDERED: DOCUSATE CALCIUM 240 MG (SURFAK) CAP PO SCH (09:00)
--- NOTE | 2020-07-15 11:00 | NUR ---
NO CHANGE IN STATUS. RESTING IN BED WITH EYES CLOSED. S.O. AT BEDSIDE HOLDING INFANT.
[2020-07-15 12:15] VITALS: BP 130/74
--- NOTE | 2020-07-15 13:15 | NUR ---
EATING STORK MEAL. CONTINUES TO CARE FOR . WELL.
--- NOTE | 2020-07-15 14:10 | NUR ---
AMBULATING IN THE [place]ARK WITH SPOUSE PUSHING BABY IN CRIB.
--- NOTE | 2020-07-15 16:15 | NUR ---
PT ASKED THIS RN TO COME TO THE ROOM. WANTING TO KNOW IF THEY WERE GOING HOME PER DR. WALL THIS EVENING R/T PARENTS BRINGING DAUGHTER HOME AND MARY NEEDING TO GO BE WITH DAUGHTER. INFORMED WOULD CHECK WITH DR. WALL.
--- NOTE | 2020-07-15 16:35 | NUR ---
NOTIFIED DR. WALL OF 'S BS X LAST 2 AND BILIRUBIN. PLAN TO KEEP AND DO BLOOD SUGARS Q 3 HOURS PLUS REPEAT BILIRUBIN IN THE A.M. STATES SHE WILL CALL MOM.
--- NOTE | 2020-07-15 16:40 | NUR ---
DR. WALL CALLED PT TO EXPLAIN WHY NEEDED TO CHECK BLOOD SUGARS THROUGHOUT THE NIGHT AND RECHECK BILIRUBIN IN THE A.M.
[2020-07-15 17:30] VITALS: BP 135/67
--- NOTE | 2020-07-15 18:30 | NUR ---
ICE PACK GIVEN. INFANT IN CHAIR.
[2020-07-15 23:15] VITALS: BP 121/74
[2020-07-16 05:03] VITALS: BP 127/70
[2020-07-16] MEDS: IBUPROFEN 600 MG (MOTRIN) TAB PO SCH (05:03)
--- NOTE | 2020-07-16 08:15 | NUR ---
DR. DICKINSON HERE TO SEE PT. PT C/O MILD DISCOMFORT IN LEFT LEG ABOVE CALF. NICOL'S NEGATIVE. PT INSTRUCTED TO MONITOR AT HOME AND CALL IF GETS WORSE.
--- NOTE | 2020-07-16 08:44 | Postpartum Progress Note ---
Note Note Day # 2 Subjective: Patient is without complaints. Ambulating, voiding. Tolerating a regular diet without nausea or vomiting. Normal lochia. Pain is well controlled with oral pain medications. Objective: Physical Exam: General - Alert and oriented, no apparent distress Abdomen - Soft, appropriately tender to palpation, non-distended, fundus firm at umbilicus Extremities - no edema, negative Amira's bilaterally Assessment: PPD 2 NVD GHTN Plan: Routine care. Encourage breast feeding. Encourage ambulation. Ferrous sulfate supplementation. Plan for discharge today Vitals - Labs Vital Signs - I&O Vital Signs Date Time Temp Pulse Resp B/P (MAP) Pulse Ox O2 Delivery O2 Flow Rate FiO2 07/16/20 05:03 36.6 75 18 127/70 (89) 98 Room Air 07/15/20 23:15 36.8 85 18 121/74 (90) 98 Room Air 07/15/20 17:30 36.7 80 18 135/67 (89) 98 Room Air 07/15/20 12:15 36.8 82 18 130/74 (92) 98 Room Air 07/15/20 08:45 37.0 83 18 135/69 (91) 97 Room Air AGGIE DICKINSON DO Jul 16, 2020 8:44 am
[2020-07-16 09:00] VITALS: BP 127/77
--- NOTE | 2020-07-16 09:00 | NUR ---
A.M. ASSESSMENT COMPLETED. VSS. CARING FOR IN ROOM.
[2020-07-16] MEDS: FERROUS SULF 325 MG (IRON) TAB PO SCH (09:01)
[2020-07-16] MEDS: PRENATAL VITAMIN 1 EA TAB PO SCH (09:01)
[2020-07-16] MEDS: DOCUSATE SODIUM 100 MG (COLACE) CAP PO SCH (09:01)
--- NOTE | 2020-07-16 11:10 | NUR ---
DISCHARGE INSTRUCTIONS REVIEWED WITH COPY TO PT. STATES UNDERSTANDING OF ALL INSTRUCTIONS AND NEED TO F/U SCHEDULED AND NEEDED.
[2020-07-16 12:00] VITALS: BP 127/77
--- NOTE | 2020-07-16 12:00 | NUR ---
DISMISSED AMB FROM [facility] WITH INFANT TO FAMILY CAR IN STABLE CONDITION ACC BY SPOUSE AND DANYELL RUIZ RN.
== END 2020-07-16 12:00 | disposition home or self-care (01) | DRG 807 ==
LOC: LDRP 19:06
PROVIDERS: ADMIT Obstetrics & Gynecology; ATTEND Obstetrics & Gynecology
PROC: 3E0DXGC Introduction of Other Therapeutic Substance into Mouth and Pharynx, External Approach (ICD-10-PCS; 2020-07-13)
PROC: 10E0XZZ Delivery of Products of Conception, External Approach (ICD-10-PCS; principal; 2020-07-14)
PROC: 0KQM0ZZ Repair Perineum Muscle, Open Approach (ICD-10-PCS; 2020-07-14)
PROC: 0W8NXZZ Division of Female Perineum, External Approach (ICD-10-PCS; 2020-07-14)
DX: O13.4 Gestational [pregnancy-induced] hypertension without significant proteinuria, complicating childbirth (principal); Z37.0 Single live birth; O70.1 Second degree perineal laceration during delivery; O69.81X0 Labor and delivery complicated by cord around neck, without compression, not applicable or unspecified; Z3A.39 39 weeks gestation of pregnancy
CPT/HCPCS: 36415; 80053; 81000; 82570; 84156; 84550; 85025; 86850; 86900; 86901

== ENCOUNTER → 2021-02-04 | Outpatient (CLI) | payer OTHER ==
[~2021-02-04] MED LIST changes: +ACET325C7 PO; +ACHD5005 PO; +BENZ78AE5 TP; +DCS100C PO; +DIBU30OI TOP; +IBUP-844 PO
--- NOTE | 2021-02-04 13:25 | Diagnostic Imaging Report ---
EXAMINATION: Right hip radiographs, 2 views. COMPARISON: None. HISTORY: 30-year-old female, right hip pain. FINDINGS: The right hip is not dislocated. There is no joint space loss of the right hip, osteophyte formation, or subchondral cystic change. There is no acute fracture. There is no radiographically visible bone lesion. The right sacroiliac joint is unremarkable in appearance. IMPRESSION: Unremarkable radiographs of the right hip. Dictated by: Dictated on workstation # [id number]
== END ==
LOC: RAD 12:19
PROVIDERS: ATTEND Obstetrics & Gynecology
DX: M25.551 Pain in right hip (principal)
CPT/HCPCS: 73502

== ENCOUNTER 2021-02-19 11:13 | Outpatient (RCR) | payer OTHER | END 2021-02-19 12:26 | disposition home or self-care (01) | PROVIDERS: ATTEND Obstetrics & Gynecology | DX: N81.9 Female genital prolapse, unspecified (principal); R32 Unspecified urinary incontinence ==